=== PATIENT | male | born 1945 | race Hispanic/Latino ===

== ENCOUNTER 2017-11-02 16:22 | Emergency (ER) | payer OTHER ==
[~2017-11-02] VITALS: Ht 165.1 cm; Wt 63.5 kg
[~2017-11-02 16:22] MED LIST: ACTOS15 MG PO; FLAGYL500 MG PO; NICODERM CQ1 EAC2 TOP; PENTASA500 MG PO
[2017-11-02] MEDS ORDERED: MECLIZINE HCL 12.5 MG TAB PO ONE ×2 (16:45→18:00)
[2017-11-02] MEDS ORDERED: MECLIZINE HCL 12.5 MG TAB ONE (16:49)
--- NOTE | 2017-11-02 21:12 | Diagnostic Imaging Report ---
EXAMINATION: Head CT HISTORY: Headaches, nausea and vomiting COMPARISON: None. TECHNIQUE: Multidetector axial images were obtained without contrast from the foramen magnum to the vertex . The images were reconstructed using brain and bone algorithms. Thin section brain images were reformatted into coronal and sagittal planes. Intravenous contrast: None. Motion/streaking artifact limits the evaluation of the skull base and posterior cranial fossa. FINDINGS: Parenchyma: 1. Tiny hypodensity in the right anterior thalamus may represent a small chronic lacunar infarct versus prominent perivascular space. Minimal periventricular white matter hypodensities, most likely nonspecific mild chronic microvascular ischemic changes, likely age-related. 2. No mass or hemorrhage. No CT evidence of acute territorial vascular insult. Extra-axial spaces:No abnormal density. No extra-axial fluid collections Brain volume: Normal for age. Ventricles: No hydrocephalus or displacement. Arteries: No density suggestive of thrombus. Dural sinuses: No abnormal density. Extra-axial spaces: No abnormal density. Foramen magnum: No mass, Chiari malformation, or basilar invagination. Sella: No obvious mass. Paranasal/mastoid sinuses: Imaged portions unremarkable. Skull/Scalp: No lytic or blastic lesions. No fractures. IMPRESSION: 1. Mild age-appropriate chronic microvascular ischemic changes. 2. Otherwise no intracranial abnormalities, particularly no mass, hemorrhage, hydrocephalus or fluid collections. Signed by: Dr. Aida Cabrales M.D. on 11/02/2017 9:08 PM
[2017-11-02 21:43] VITALS: BP 166/79
[2017-11-02] MEDS ORDERED: CEFTRIAXONE SOD 1 GM VIAL ONE (21:46)
== END 2017-11-02 21:54 | disposition home or self-care (01) ==
LOC: ER 16:22
DX: R42 Dizziness and giddiness (principal); H81.21 Vestibular neuronitis, right ear
CPT/HCPCS: 70450; 93005; 99283; J0696